=== PATIENT | male | born 1950 | race Caucasian/White ===

== ENCOUNTER 2017-01-04 03:03 | Inpatient (IN) | payer MEDICARE ==
[~2017-01-04] VITALS: Ht 182.9 cm; Wt 101.9 kg
[2017-01-04] VITALS (7 sets, daily range): BP systolic 119–143; BP diastolic 64–75; PULSE 67–102; RESP 18–24; O2SAT 92–96
--- NOTE | 2017-01-04 03:59 | ED.REPORT ---
HPI-General Illness Date of Service Jan 04, 2017 ED Provider: Ladarius Villa MD A 66 year old male with a history of Crohn's disease presents to the ED complaining of chills and shaking rigors that began at 1845 this evening. He reports that his symptoms began while eating dinner and persisted throughout the night. Patient was unable to sleep because of his symptoms. He recently had a screw puncture injury and a tetanus shot. He denies any fever, cough, sore throat, dysuria, nausea, abdominal pain or vomiting. Patient currently takes Cimzia. Nursing Notes Stated Complaint: COLD, SHAKY Chief Complaint: General Complaint Nursing Notes Reviewed: Yes Allergies: Coded Allergies: No Known Allergies (Unverified , 01/04/17) Scheduled ([tumeric]) 2 TAB PO DAILY Azathioprine (Azathioprine) 50 Mg Tablet 50 MG PO DAILY Certolizumab Pegol (Cimzia) 400 Mg/2 Ml Syringekit 400 MG SQ monthly Cholecalciferol (Vitamin D3) (Vitamin D3) 3,000 Unit Tablet 3,000 UNIT PO DAILY General Time Seen by MD: 03:25 Chief Complaint Other (Chills) Hx Obtained From: Patient Arrived By: Walk-in Sudden in Onset?: No Onset Occurred: Just prior to arrival Symptom Duration: Since onset Associated with: Reports: Cough, Denies: Fever, Nausea, Vomiting Pertinent Negative: Pt denies other symptoms Recent Healthcare: No recent doctor visit, No recent hospitalization Past Medical History Past Medical History Crohn's disease Past Surgical History Previous colon biopsy Smoking History Unknown if Ever Smoker Social History Other Social History: Good social support, , Local resident Ambulatory Status Independent Review of Systems Full Review of Systems Constitutional: Reports: Chills, Denies: Fever Respiratory: Denies: Non-productive cough GI: Denies: Abdominal pain, Nausea, Vomiting Complete sys rev & neg: except as marked. Physical Exam Vital Signs Vital Signs Date Time Temp Pulse Resp B/P Pulse Ox O2 Delivery O2 Flow Rate FiO2 01/04/17 04:45 37.9 01/04/17 03:05 36.2 102 24 133/75 92 Room Air Initial VS: Reviewed, Vital signs abnormal Neck: Supple, Non-tender, Full range of motion Extremities: Vascular intact, Neuro intact, No swelling, No tenderness Neurologic: Alert, Oriented, Nonfocal Psychiatric: Mood/affect normal, Behavior normal, Normal thought content General/Constitutional: Awake, Alert, No acute distress GENERAL: Overweight Head / Eyes: Atraumatic, Normocephalic, PERRL Respiratory / Chest: Atraumatic, Breath sounds NL, Breath sounds = bilat, No respiratory distress Cardiovascular: Heart rate NL, Regular rhythm, Heart sounds NL Abdomen: Atraumatic, Soft, Non-tender Skin: Atraumatic, Warm, Dry SKIN: Flushed cheeks Interpretation & Diagnostics Lab Results Interpretation Result Diagram: 01/04/17 0520 01/04/17 0520 Test 01/04/17 04:55 01/04/17 05:20 Urine Color Yellow (YELLOW) Urine Appearance Clear (CLEAR,HAZY) Urine pH 5.0 (5.0-8.0) Urine Specific [place] 1.025 (1.003-1.035) Urine Protein Negativemg/dL (NEG,TRACE) Urine Glucose (UA) Negativemg/dL (NEGATIVE) Urine Ketones Negativemg/dL (NEGATIVE) Urine Occult Blood Trace (NEGATIVE) Urine Nitrite Negative (NEGATIVE) Urine Bilirubin Negative (NEGATIVE) Urine Urobilinogen Normalmg/dL (NORMAL) Urine Leukocyte Esterase Negative (NEGATIVE) Urine RBC 0-2/hpf (0-2) Urine WBC 0-5/hpf (0-5) Urine Epithelial Cells Occasional/hpf (NONE-MOD) Urine Crystals None seen (NONE SEEN) Urine Bacteria Few/hpf (NONE-FEW) Urine Hyaline Casts None/lpf (NONE) Urine Granular Casts None seen (NONE SEEN) Urine Waxy Casts None seen (NONE SEEN) Urine Red Blood Cell Casts None seen (NONE SEEN) Urine White Blood Cell Casts None seen (NONE SEEN) Urine Mucus Present (None Seen) Urine Trichomonas None seen (NONE SEEN) Urine Yeast None (NONE SEEN) Urinalysis Comment None Urine Culture Reflexed Not indicated White Blood Count 12.4th/mm3 (3.8-10.1) Red Blood Count 4.71mil/mm3 (4.40-5.80) Hemoglobin 14.1g/dL (13.8-17.2) Hematocrit 41.8% (41.0-50.0) Mean Corpuscular Volume 88.7fL (81-100) Mean Corpuscular Hemoglobin 29.9pg (27.0-35.0) Mean Corpuscular Hemoglobin Concent 33.7% (32.0-37.0) Red Cell Distribution Width 14.0% (12.3-15.4) Platelet Count 255bil/L (150-400) Neutrophils (%) (Auto) 88.6% (40-74) Lymphocytes (%) (Auto) 4.0% (14-46) Monocytes (%) (Auto) 6.1% (4-12) Eosinophils (%) (Auto) 0.6% (0-5) Basophils (%) (Auto) 0.2% (0-3) Sodium Level 135mEq/L (134-144) Potassium Level 4.7mEq/L (3.5-5.2) Chloride Level 98mEq/L (97-108) Carbon Dioxide Level 21mmol/L (18-29) Blood Urea Nitrogen 19mg/dL (8-27) Creatinine 1.11mg/dL (0.76-1.27) Estimat Glomerular Filtration Rate 70mL/min (>59) Glucose Level 138mg/dL (60-99) Lactic Acid Level 2.1mmol/L (0.4-2.0) Calcium Level 9.8mg/dL (8.5-10.1) Magnesium Level 1.6mg/dL (1.6-2.6) Total Bilirubin 0.9mg/dL (0.0-1.2) Aspartate Amino Transf (AST/SGOT) 23U/L (0-50) Alanine Aminotransferase (ALT/SGPT) 5U/L (0-44) Alkaline Phosphatase 96U/L (25-160) Troponin T 0.010ug/L (0.0-0.011) Total Protein 7.0g/dL (6.4-8.4) Albumin 3.5g/dL (3.4-5.0) Lipase 27U/L (13-60) Lab Results Interpretation: Mildly elevated white blood count, mildly elevated lactic acidosis, mildly elevated nonfasting blood glucose. X-Ray Chest Interpretation Chest Xray Interpretation: IMPRESSION: Left lower lobe pneumonia Interpretation / Wet Read by: Wet read ED physician Re-Eval/Medical Decision Med Decision/Clinical Course 66-year-old male who had chills and then shaking rigors throughout the day today. He is on immunosuppressive therapy for his Crohn's disease. He has no abdominal pain or other symptoms suggesting where he might be infected. Urinalysis is negative. Chest x-ray shows loss of the subarachnoid and left diaphragm with some scarring versus infiltrate. Clinically he seems to have a pneumonia as the basis for his sepsis syndrome. He was cultured and started on antibiotics. Time of Eval: 05:53 Re-Evaluation/Progress Note: Pt is informed of his X-ray results and likely pneumonia. He is informed of the plan to admit. All of the pt's 's questions are addressed. 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 I, Dr. Villa personally performed the history, physical exam and medical decision-making; I reviewed and confirmed the accuracy of the information in the transcribed note. Signed by: Belgica Saleem, 01/04/17 0621. Ladarius Villa MD Jan 04, 2017 03:59 NILESH LAUREANO Jan 04, 2017 04:53
[2017-01-04] MEDS ORDERED: 0.9% Sodium Chloride 1,000 ML IV ONE (04:56)
[2017-01-04 05:21] LABS: APPEARANCE,URINE CLEAR (CLEAR,HAZY); COLOR,URINE YELLOW (YELLOW); OCCULT BLOOD,URINE TRACE (NEGATIVE); UROBILINOGEN,URINE NORMAL (NORMAL)
[2017-01-04 05:29] LABS: BASOPHILS % (AUTO) 0.2 % (0-3); EOSINOPHILS % (AUTO) 0.6 % (0-5); MONOCYTES % (AUTO) 6.1 % (4-12); Mean Corpuscular Hemoglobin 29.9 pg (27.0-35.0); Mean Corpuscular Volume 88.7 fL (81-100); NEUTROPHILS % (AUTO) 88.6 % (40-74); Platelet Count 255 bil/L (150-400)
[2017-01-04 05:50] LABS: TROPONIN T 0.01 ug/L (0.0-0.011)
[2017-01-04 06:01] LABS: Magnesium 1.6 mg/dL (1.6-2.6)
[2017-01-04] MEDS ORDERED: Azithromycin Inj 500 MG in Dextrose 5% w/Vial Mate 250 ML IV ONE (06:05)
[2017-01-04] MEDS ORDERED: cefTRIAXone Inj 2,000 MG in Dextrose 5% Minibag Plus 50 ML IV ONE (06:05)
[2017-01-04] MEDS ORDERED: Ondansetron 2 mg/mL 2 mL Inj IVPUSH PRN (07:20)
[2017-01-04] MEDS ORDERED: CHOL3000 PO (07:46)
[2017-01-04] MEDS ORDERED: CERT400S SQ (07:46)
[2017-01-04] MEDS ORDERED: AZTH50T PO (07:46)
[2017-01-04] MEDS ORDERED: tumeric PO (07:46)
--- NOTE | 2017-01-04 08:00 | NUR ---
Admit to [facility] Pt admitted to [facility] from the ED at 0745 hrs. Alert and oriented x 3. No complaints of pain. VSS. PIV patent and asymptomatic. Pt placed on telemetry. Personal clothing taken home by pt's spouse except for a pair of jeans, which were placed in the closet. Awaiting new orders.
--- NOTE | 2017-01-04 08:09 | NUR ---
Admit: Pt admitted to [facility] room 1014 at 0745, pt awake and alert. Health history and med rec obtained from verbal recall of patient. Report given to Bryanna Mojica RN, to assume care of patient.
--- NOTE | 2017-01-04 08:27 | DRSVH ---
PROCEDURE: X-RAY CHEST ONE VIEW, PORTABLE ([id number]) INDICATIONS: rigors TECHNIQUE: One view of the chest was acquired. COMPARISON: None. FINDINGS: Surgical changes and devices: None. Lungs and pleura: No pleural effusions or pneumothorax. Patchy opacity noted in the left lung base w hich represent atelectasis or pneumonia. Mediastinum: Mediastinal contours appear normal. Heart size is normal. Bones and chest wall: No suspicious bony lesions. Overlying soft tissues appear unremarkable. IMPRESSION: Left basilar atelectasis versus pneumonia. Please correlate with clinical and laboratory data. Dictated by: Svetlana Garcias MD, PhD on 01/04/2017 at 8:25 Approved by: Svetlana Garcias MD, PhD on 01/04/2017 at 8:26
[2017-01-04] MEDS ORDERED: CYAN100T PO (09:07)
[2017-01-04] MEDS ORDERED: CHOL500011 PO (09:07)
[2017-01-04] MEDS ORDERED: CALC600T12 PO (09:07)
[2017-01-04] MEDS ORDERED: MULT1CAP33 PO (09:08)
[2017-01-04] MEDS ORDERED: TACR100O2 TP (09:08)
--- NOTE | 2017-01-04 09:15 | NUR ---
PASTOR signed by pt
--- NOTE | 2017-01-04 11:28 | PCM.HPMED ---
Subjective Date of Service Jan 04, 2017 Primary Provider: Admitting Physician: Terry Mendieta MD Primary Care Physician: Other,Physician Attending Physician: Terry Mendieta MD Chief Complaint: rigors, chills History of Present Illness: 66yo M with Crohn's dz on immunosupressives, no other PMH p/w sudden onset of rigors and chills after dinner. patient tried warm bath, didn't help his sx. pt was recently went to [place], [place] helping out her son's [id number] house work painting. pt had trauma on scalp, minor superficial lac on 12/20, stapled. patient came back on 12/25, staple removed on 12/27 by local doctor, received tetanus vac. patient since then doing okay, didn't recall any sick contact in [place]. pt is having diarrhea at baseline, 7-8times watery at baseline, not different from baseline. Patient denied abdominal pain, n, v. patient has good appetite as well. pt having thick secretion, usually in the morning, but clears up in the morning. pt denied SOB, chest pain. ED VS SIRS+, BP 133/75, 102, 24, 37.9, 92% on RA. labs showed mild leukocytosis , mildly elevated lactate. CXR showed Lt base patch opacities, atelectasis vs PNA. pt received NS bolus 1-2liters, azithromycin, Rocephin. upon interview at [facility], pt looked not toxic, comfortable, denied any complaints. denied chills, tremors. cough, sputum, SOB Review of Systems: Pertinent positives as noted in history of present illness. All other systems were reviewed and are negative Allergies Coded Allergies: No Known Allergies (Unverified , 01/04/17) Home Medications Scheduled ([tumeric]) 2 TAB PO DAILY Azathioprine (Azathioprine) 50 Mg Tablet 50 MG PO DAILY Certolizumab Pegol (Cimzia) 400 Mg/2 Ml Syringekit 400 MG SQ monthly Cholecalciferol (Vitamin D3) (Vitamin D3) 3,000 Unit Tablet 3,000 UNIT PO DAILY PMH As described above in history of present illness Surgical History Left neck benign tumor removal 4 years ago benign colon mass removal, colectomy Left heel surgery 5times Bilateral inguinal hernia surgeries, mesh placed Family History Mother of breast cancer Father of stroke Social History Hx Alcohol Use: No Hx Substance Use: No Hx Tobacco Use: No Smoking Status: Unknown if Ever Smoker Additional Information lives home with Exam Vital Signs Vital Sign - Last Date Time Temp Pulse Resp B/P Pulse Ox O2 Delivery O2 Flow Rate FiO2 01/04/17 09:03 36.8 88 18 143/66 96 Room Air Intake and Output 01/03/17 01/03/17 01/04/17 Cumulative From/Thru 15:00 23:00 07:00 01/04/17 03:05 - 01/04/17 06:47 Intake Total 2000 ml 2000 ml Balance 2000 ml 2000 ml Intake IV Total 2000 ml 2000 ml Exam NAD, comfortably laying down on the bed no JVD, MMM, no LAD RRR, nl s1, s2 no mrg CTAB, no w,c S,ND,NT,normoactive BS+ warm, no edema, pulses 2/2 Lab and Diagnostics Result Diagram: 01/04/17 0520 01/04/17 0520 X-Rays, CTs and MRIs PROCEDURE: X-RAY CHEST ONE VIEW, PORTABLE ([id number]) INDICATIONS: rigors TECHNIQUE: One view of the chest was acquired. COMPARISON: None. FINDINGS: Surgical changes and devices: None. Lungs and pleura: No pleural effusions or pneumothorax. Patchy opacity noted in the left lung base which represent atelectasis or pneumonia. Mediastinum: Mediastinal contours appear normal. Heart size is normal. Bones and chest wall: No suspicious bony lesions. Overlying soft tissues appear unremarkable. IMPRESSION: Left basilar atelectasis versus pneumonia. Please correlate with clinical and laboratory data. Dictated by: Svetlana Garcias MD, PhD on 01/04/2017 at 8:25 Approved by: Svetlana Garcias MD, PhD on 01/04/2017 at 8:26 Assessment & Plan Acute, active sepsis, POA, SIRS+, likely bacterial although no clear source: probable CAP based on CXR,hx, infectious colitis. Given patient's immunosupressive state. 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
[2017-01-04] MEDS ORDERED: TACROLIMUS TP PRN (11:30)
--- NOTE | 2017-01-04 12:24 | NUR ---
Social Work: Initial Assessment/Readiness for Discharge D: EMR reviewed. Pt is a 66 y/o male admitted for left LL pneumonia, sepsis per H&P. GERMAN met with pt and pt's spouse/DPOA (Hailey March [phone]) at bedside to conduct initial assessment. Pt was alert and oriented x3. SW explained role and wrote phone number on white board. Pt's insurance is [facility] Medicare Complete HMO and PCP is located in [place]. Pt's primary contact his is spouse, (Hailey March [phone]), who can be contacted for discharge planning. SW provided DPOA/advanced directive ppw and encouraged pt to provide a copy to the hospital when completed. Pt and spouse stated that spouse is DPOA according to legal documents at home. SW encourage pt to provide any document pertaining to DPOA to the hospital. Pt has no Hx of HH or SNF. Pt has no LTC insurance or VA benefits. Pt is independent with ADLs. Pt does not use or own any DME. Pt drives. Pt is independent at baseline. Pt lives with his spouse in a multi-story home with 0 steps to enter and 13 steps to the second floor in [place]. Pt confirmed that his spouse will provide transport home via POV when pt is medically stable to discharge. SW does not anticipate any discharge needs at this time but will continue to follow EMR if needs arise. Per MD in AM multi-disciplinary rounds, pt is likely to discharge 6/5. A: Pt who is independent at baseline P: Pt confirmed that his spouse will provide transport home via POV when pt is medically stable to discharge. SW does not anticipate any discharge needs at this time but will continue to follow EMR if needs arise. CHRISTIANO Trotter Addendum: 01/04/17 at 1229 by MING NOGUEIRA Amended: Links added.
--- NOTE | 2017-01-04 18:40 | NUR ---
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 Administered 650 mg PO Tylenol. Temperature was 36.6 at 1750 hrs. Pt denies pain.
[2017-01-05 00:30] VITALS: BP 128/71; PULSE 66; RESP 16; O2SAT 96
--- NOTE | 2017-01-05 05:13 | NUR ---
No fever - no chills overnight. Denies pain, resting well. no acute changes.
[2017-01-05 05:37] LABS: BASOPHILS % (AUTO) 0.2 % (0-3); EOSINOPHILS % (AUTO) 2.5 % (0-5); MONOCYTES % (AUTO) 12.7 % (4-12); Mean Corpuscular Hemoglobin 29.5 pg (27.0-35.0); Mean Corpuscular Volume 87.6 fL (81-100); Platelet Count 191 bil/L (150-400)
[2017-01-05 05:50] VITALS: BP 118/75; PULSE 60; RESP 16; O2SAT 96
[2017-01-05 05:55] VITALS: PULSE 66
[2017-01-05 06:01] LABS: Magnesium 1.8 mg/dL (1.6-2.6); Phosphorus 3.1 mg/dL (2.5-4.9)
[2017-01-05] MEDS ORDERED: TUMERIC PO SCH (08:30)
[2017-01-05] MEDS ORDERED: Azithromycin Inj 500 MG in Dextrose 5% w/Vial Mate 250 ML IV SCH ×4 (08:30)
[2017-01-05 09:17] VITALS: BP 119/70; PULSE 65; RESP 18; O2SAT 96
[2017-01-05] MEDS: cefTRIAXone Inj 2,000 MG in Dextrose 5% Minibag Plus 50 ML IV SCH (09:27)
[2017-01-05] MEDS: Multivit-Miner-Folic Acid-Iron Tablet PO SCH (09:29)
[2017-01-05] MEDS: Calcium Carbonate (Oyster Shell) 500 mg Tablet PO SCH (09:29)
[2017-01-05 10:04] VITALS: PULSE 65
--- NOTE | 2017-01-05 11:14 | PCM.PNMED ---
Subjective Date of Service Jan 05, 2017 Subjective pt was started on Fluconazole, remained stable, still no complaints, stools were negative for infection PCT is trending up but wbc with poly normalized Fungitell, fungal culture sent Exam Vital Signs Vital Sign - Last Date Time Temp Pulse Resp B/P Pulse Ox O2 Delivery O2 Flow Rate FiO2 01/05/17 10:04 65 01/05/17 09:17 36.7 18 119/70 96 Room Air Intake and Output 01/04/17 01/04/17 01/05/17 Cumulative From/Thru 15:00 23:00 07:00 01/04/17 03:05 - 01/05/17 06:12 Intake Total 1400 ml 700 ml 4100 ml Output Total 1500 ml 1200 ml 2700 ml Balance -100 ml -500 ml 1400 ml Intake Oral 1400 ml 700 ml 2100 ml IV Total 2000 ml Output Urine Total 1500 ml 1200 ml 2700 ml # Voids 3 3 # Bowel Movements 1 1 Exam NAD, comfortably laying down on the bed no JVD, MMM, no LAD RRR, nl s1, s2 no mrg CTAB, no w,c S,ND,NT,normoactive BS+ warm, no edema, pulses 2/2 IVs and Medications Medications Reviewed: Medications were reviewed in detail Lab and Diagnostics Result Diagram: 01/05/17 0500 01/05/17 0500 X-Rays, CTs and MRIs PROCEDURE: X-RAY CHEST ONE VIEW, PORTABLE ([id number]) INDICATIONS: rigors TECHNIQUE: One view of the chest was acquired. COMPARISON: None. FINDINGS: Surgical changes and devices: None. Lungs and pleura: No pleural effusions or pneumothorax. Patchy opacity noted in the left lung base which represent atelectasis or pneumonia. Mediastinum: Mediastinal contours appear normal. Heart size is normal. Bones and chest wall: No suspicious bony lesions. Overlying soft tissues appear unremarkable. IMPRESSION: Left basilar atelectasis versus pneumonia. Please correlate with clinical and laboratory data. Dictated by: Svetlana Garcias MD, PhD on 01/04/2017 at 8:25 Approved by: Svetlana Garcias MD, PhD on 01/04/2017 at 8:26 Assessment & Plan Acute, active sepsis, POA, SIRS+, likely bacterial although no clear source: probable CAP based on CXR,hx, infectious colitis. Given patient's immunosupressive state. 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
[2017-01-05] MEDS: CYANOCOBALAMIN 3000 MCG SL SCH (15:32)
--- NOTE | 2017-01-05 16:15 | DRSVH ---
PROCEDURE: CT CHEST WITHOUT CONTRAST ([id number]) INDICATIONS: ? evolving LLL pneumonia TECHNIQUE: Noncontrast 5 mm thick sections acquired from the pulmonary apices to the posterior costophrenic angl es. 7 mm thick coronal and sagittal MIP reformats were then acquired. For radiation dose reduction, the following was used: automated exposure control, adjustment of mA and/or kV according to patient size. COMPARISON: [facility], CR, XR CHEST 1VW (PORTABLE), 01/04/2017, 4:57. FINDINGS: Image quality: Excellent. Lungs and pleura: No definite acute air space opacities, and there is a mild degree of linear strand ing in each lung base, slightly improved from the comparison study by chest plain film 01/04/17.. No p leural effusions or pneumothorax. Central and peripheral airways are patent and normal in caliber. Mediastinum: Heart size is normal. No pericardial effusion. No mediastinal adenopathy by size crit eria. Thoracic aorta and central pulmonary arteries are normal in size. Esophagus is normal in husam brianna. No hiatal hernia. Bones and chest wall: No suspicious bony lesions. No vertebral body compression fractures. No axil austen or supraclavicular adenopathy by size criteria. Thyroid gland is not well-visualized by this no ncontrast technique but appears normal where well seen.. Abdomen: Visualized upper abdominal solid organs and bowel loops appear normal in the absence of con trast. IMPRESSION: The linear stranding in each lung base, greater on the left than the right, appears to r epresent more likely atelectasis than evidence of early pneumonia in the mild improvement over time f rom one day ago. Dictated by: Boogie Moran M.D. on 01/05/2017 at 16:11 Approved by: Boogie Moran M.D. on 01/05/2017 at 16:13
--- NOTE | 2017-01-05 16:42 | CONS ---
[address] [address] CONSULTATION REPORT PATIENT: JOANA WALLACE : 1950 MR#: [id number] ADMIT: 01/04/2017 JOB ID: [id number] DATE OF SERVICE: 01/05/[address] Banerjee for this timely consult. REASON FOR CONSULTATION: Possible pneumonia in a patient who recently traveled to [place] and is immunosuppressed. HISTORY OF PRESENT ILLNESS: The patient is a 66-year-old gentleman who about six years ago was diagnosed with Crohn's. He is currently on dual regimen including Cimzia as well as Imuran. He is not taking prednisone. He was tolerating the therapy quite well and having four or five bowel movements a day until a recent trip to [place]. He traveled by car to [place], [place] with his and they were in [place] from December 10 until December 25 helping his son fix up a house. Following this time, they drove back to this area. They usually reside in [place], but they have a rental home in [facility] which is a historic family property they rent out to vacationers. In any event, the patient reported he was at a dinner constitution party on Friday night and, during that constitution party, he noticed he was incredibly cold while the other guests reported they felt fine. Subsequent to that, he went home and became so cold he developed rigors. He got in a hot bathtub to try and overcome the rigors, but was just continuously shaking and finally gave up and came to the emergency department where he was admitted. The patient reports that he felt as if there were some fevers associated with these rigors and these are the most dramatic rigors of his life. In association with the rigors, he had a bit of a headache but really no other focal symptoms. He did note that he has had some tenderness in his right 2nd molar which has been going on for several weeks and it is not a whole lot better or worse here recently. Otherwise, no stiff neck. No sore throat. No significant cough, shortness of breath or chest pain. He does note that with very deep inspiration, he may have a little bit of left mid chest pleuritic pain, but no nausea or vomiting. He does have constant diarrhea as part of his Crohn's, but it is not worse than normal. No dysuria and no hematuria. No skin rash has been noted. PAST MEDICAL HISTORY: 1. Crohn's disease. 2. Inguinal hernias. 3. Removal of benign colon mass by colectomy. 4. Removal of left neck benign tumor. 5. Left heel surgery. SOCIAL HISTORY: The patient is a nondrinker and nonsmoker. FAMILY HISTORY: Negative for tuberculosis. REVIEW OF SYSTEMS: Was done. The patient is currently feeling much improved. He notes that his bed shaking rigors started to improve right after he got to the emergency department, and he attributes it to the initiation of antibiotic therapy. At this point, he has little in the way of headache, no confusion, no change in vision. No sore throat. He has no cough, maybe . He has had a left pleuritic chest pain with deep inspiration. He is not short of breath. No nausea, vomiting, diarrhea is at baseline. No dysuria. No swelling of the joints and no difficulty with ambulation. The remainder of the review of systems was negative. PHYSICAL EXAMINATION: Reveals an afebrile, comfortable gentleman sitting on the side of the bed. Temperature is 36.6, and note that he has been afebrile now for a little more than 24 hours which is the whole time he has been here basically. He did have a 37.9 temperature right after he arrived in the ED. Pulse is 65, respiratory rate 18, blood pressure 119/70. Examination of the mental status reveals to be clear. Head without trauma. Eyes without conjunctivitis. Extraocular movements are normal. Nose normal. Oral cavity without thrush or hairy leukoplakia. I did push with my gloved hand very hard on the right 2nd upper molar, and there was minimal tenderness. The gums appear benign. Neck without adenopathy or tenderness. There are focal rales at the left base and these are not heard at the right base. The back is nontender, as mentioned, throughout. Abdomen soft and nontender. There is no hepatosplenomegaly, no ascites. No focal tenderness. No suprapubic tenderness. Examination of skin shows no rash and specifically no erythema nodosum. No peripheral edema. No evidence for synovitis. Neuro exam is entirely normal. Remainder of the physical normal. LABORATORIES: Include a white count of 12,000 when he was in the ED yesterday morning, now 6000 with basically normal diff. Creatinine 0.8. LFTs normal except for bilirubin 1.3. Albumin 3.3. Procalcitonin was measured twice 0.12 in the ED and 0.35 this morning. Urinalysis without white cells. Cocci antibody and fungitell are pending. Micro studies include negative blood cultures. Negative urine Legionella and pneumococcal antigens. Negative respiratory viral PCR. Negative MRSA PCR. IMAGING: Includes a chest x-ray, which according to the radiologist, shows left basilar atelectasis. This is very subtle. IMPRESSION: This is a difficult case. This gentleman is on a very powerful immunosuppressive regimen with a TNF inhibitor as well as Imuran and recently spent two weeks or so in the [facility]. This certainly raises the possibility of an acute coccidioidomycosis infection, though I think that this is somewhat unlikely as he has no sustained fevers, no eosinophilia and really an almost imperceptible infiltrate on this initial chest x-ray, at least. Given that he is, however, immunosuppressed with a TNF inhibitor, cocci must be borne in mind. I also worry about other forms of pneumonia including Legionella or staphylococcal pneumonia, but at this point, we have little to suggest those either. The patient has been started on a combination of azithromycin, ceftriaxone and fluconazole which I think is reasonable while we attempt to sort this out. In view of his overall low toxicity, however, and his desire to get back home to [place] soon, I hope that we can soon arrive at an oral antibiotic combination and get him out of the hospital. RECOMMENDATIONS: 1. I agree with the valley fever titers which have been drawn. 2. We are going to get a CT scan of the chest without contrast to better evaluate his left lower lung. 3. I will continue with these antibiotics with a possible transition to something oral, so that he could be discharged back home to [place] in the near future. I thank you very much for engaging me in this very interesting consult.
--- NOTE | 2017-01-05 18:48 | NUR ---
Afebrile Pt. has had no fever or chills on shift. Pt. is pleasant and cooperative with care c/o no CP or SOB. Pt. did state feeling some pressure/ache on his right cheek at beginning of shift, 1-2 out 10, and also stating this was going on for about 1 week and half. Will continue to monitor.
[2017-01-05 21:00] VITALS: BP 130/77; PULSE 66; RESP 16; O2SAT 96
--- NOTE | 2017-01-06 04:09 | NUR ---
activity pt has been afebrile and denies chills. he reports a mild discomfort in a tooth on the upper R. he says the pain is a 1-2/10 and denies need for pain medication. he has been up independently in room. denies any weakness or SOB. pleasant and cooperative with care.
[2017-01-06 05:00] VITALS: BP 129/78; PULSE 58; RESP 18; O2SAT 93
[2017-01-06 05:42] LABS: BASOPHILS % (AUTO) 0.3 % (0-3); EOSINOPHILS % (AUTO) 4.1 % (0-5); MONOCYTES % (AUTO) 12.3 % (4-12); Mean Corpuscular Volume 88.7 fL (81-100); NEUTROPHILS % (AUTO) 66.8 % (40-74); Platelet Count 199 bil/L (150-400)
[2017-01-06 06:09] LABS: Magnesium 1.9 mg/dL (1.6-2.6); Phosphorus 3.6 mg/dL (2.5-4.9)
[2017-01-06] MEDS: Multivit-Miner-Folic Acid-Iron Tablet PO SCH (08:22)
[2017-01-06] MEDS: Calcium Carbonate (Oyster Shell) 500 mg Tablet PO SCH (08:23)
[2017-01-06] MEDS: CYANOCOBALAMIN 3000 MCG SL SCH (08:24)
[2017-01-06 08:31] VITALS: BP 135/78; PULSE 57; RESP 20; O2SAT 94
--- NOTE | 2017-01-06 08:32 | PROG NOTE ---
[address] [address] PROGRESS NOTE PATIENT: JOANA WALLACE : 1950 MR#: [id number] ADMIT: 01/04/2017 JOB ID: [id number] DATE: 01/06/2017 REASON FOR FOLLOWUP: Fever and leukocytosis in an immunosuppressed host. INTERVAL HISTORY: Overnight, the patient has had no additional fevers, chills, sweats, or cough. He has no shortness of breath and, aside from his chronic diarrhea due to his Crohn's disease, he feels quite well. PHYSICAL EXAMINATION: Reveals an afebrile gentleman. Temperature 36.7, pulse 58, respiratory rate 18, blood pressure 129/78. He is saturating well on room air. In no acute distress. Examination of the mental status reveals it to be completely clear. Oral cavity negative. Lungs clear to auscultation posteriorly. Cardiac tones without change. No skin rash. No e. nodosum. LABORATORIES: Include white count 6400, normal diff. Creatinine 0.78. LFTs are normal. Procalcitonin was 0.1 in the ED, went to 0.3 on the , and is 0.2 today. Urinalysis without white cells. QuantiFERON Gold is pending. Cocci antibody and Fungitell pending. Urine Legionella and pneumococcal antigens are negative. Respiratory multiplex PCR negative. Chest CT scan I reviewed personally on the view finder shows linear stranding in the bases, left greater than right, which the radiologist and I agree likely represents atelectasis. They also note that it seems improved compared to the chest radiograph on the . IMPRESSION: This is a gentleman with underlying Crohn's disease who is on a TNF inhibitor as well as Imuran, and recently returned from [place]. He presents with chills basically that progressed to rigors which led him to come to the emergency department where he was evaluated with blood cultures and numerous other studies which have so far proved to be negative. Since his admission here, he has been afebrile for basically three days and all of his cultures and studies have proven to be negative except for a mild leukocytosis when he originally presented, 12,000 white cells, 88% segs, which resolved within 24 hours, and now he has mild monocytosis at 12%, otherwise completely normal diff. His chemistry studies are normal. His procalcitonin never reached more than 0.3, and we have cocci studies which are pending which I suspect will be negative. At this point, he is completely asymptomatic on room air, with a chest CT which shows little streaky atelectasis in the bases, and I think he could be discharged. As of this morning, he will have received three days of azithromycin and ceftriaxone, and I think that I would just send him out with about two more days of azithromycin 500 a day to complete a 5-day course or 2.5 g of azithromycin with the addition of the 3 g of ceftriaxone with the three days of ceftriaxone he has already received. RECOMMENDATIONS: 1. Okay to discharge today with azithromycin 500 once a day to be taken on January 07 and , and then stop. 2. The patient should follow up with his primary care doctor within the next week or so. 3. I have given the patient my cell number, and they can call me on Friday or so for results of the cocci antibodies and QuantiFERON Gold studies we have ordered, or any other questions they might have. Thank you very much. ID will go ahead and sign off.
[2017-01-06] MEDS: cefTRIAXone Inj 2,000 MG in Dextrose 5% Minibag Plus 50 ML IV SCH (08:55)
--- NOTE | 2017-01-06 09:31 | PCM.DIMED ---
Discharge Instructions Date of Service Jan 06, 2017 Dates of Hospitalization Jan 04, 2017 at 07:08 Discharge Diagnosis Discharge Diagnosis Possible Pneumonia Crohn's Disease Patient Instructions Patient Instructions Call and speak with Dr. Bragg this Friday as he recommended, he will give you the final results. Also plan in seeing your primary care provider next week in follow up. Mare Newman MD Jan 06, 2017 09:31
[2017-01-06] MEDS ORDERED: AZIT500T5 PO (10:09)
--- NOTE | 2017-01-06 10:16 | PCM.DC.MED ---
Discharge Summary Date of Service Jan 06, 2017 Dates of Hospitalization Date of Hospital Admission Jan 04, 2017 at 07:08 Date of Discharge: Jan 06, 2017 Providers: Admitting Physician: Terry Mendieta MD Primary Care Physician: Other,Physician Attending Physician: Terry Mendieta MD Diagnosis at Time of Discharge Diagnosis at Time of Discharge Possible Pneumonia Crohn's Disease Procedures XRay, CTs & MRIs PROCEDURE: X-RAY CHEST ONE VIEW, PORTABLE ([id number]) INDICATIONS: rigors TECHNIQUE: One view of the chest was acquired. COMPARISON: None. FINDINGS: Surgical changes and devices: None. Lungs and pleura: No pleural effusions or pneumothorax. Patchy opacity noted in the left lung base which represent atelectasis or pneumonia. Mediastinum: Mediastinal contours appear normal. Heart size is normal. Bones and chest wall: No suspicious bony lesions. Overlying soft tissues appear unremarkable. IMPRESSION: Left basilar atelectasis versus pneumonia. Please correlate with clinical and laboratory data. Dictated by: Svetlana Garcias MD, PhD on 01/04/2017 at 8:25 Approved by: Svetlana Garcisa MD, PhD on 01/04/2017 at 8:26 PROCEDURE: CT CHEST WITHOUT CONTRAST ([id number]) INDICATIONS: ? evolving LLL pneumonia TECHNIQUE: Noncontrast 5 mm thick sections acquired from the pulmonary apices to the posterior costophrenic angles. 7 mm thick coronal and sagittal MIP reformats were then acquired. For radiation dose reduction, the following was used: automated exposure control, adjustment of mA and/or kV according to patient size. COMPARISON: Merged With [facility], CR, XR CHEST 1VW (PORTABLE), 01/04/2017, 4: 57. FINDINGS: Image quality: Excellent. Lungs and pleura: No definite acute air space opacities, and there is a mild degree of linear stranding in each lung base, slightly improved from the comparison study by chest plain film 01/04/17.. No pleural effusions or pneumothorax. Central and peripheral airways are patent and normal in caliber. Mediastinum: Heart size is normal. No pericardial effusion. No mediastinal adenopathy by size criteria. Thoracic aorta and central pulmonary arteries are normal in size. Esophagus is normal in caliber. No hiatal hernia. Bones and chest wall: No suspicious bony lesions. No vertebral body compression fractures. No axillary or supraclavicular adenopathy by size criteria. Thyroid gland is not well-visualized by this noncontrast technique but appears normal where well seen.. Abdomen: Visualized upper abdominal solid organs and bowel loops appear normal in the absence of contrast. IMPRESSION: The linear stranding in each lung base, greater on the left than the right, appears to represent more likely atelectasis than evidence of early pneumonia in the mild improvement over time from one day ago. Dictated by: Boogie Moran M.D. on 01/05/2017 at 16:11 Brief History 66yo M with Crohn's dz on immunosupressives, no other PMH p/w sudden onset of rigors and chills after dinner. patient tried warm bath, didn't help his sx. pt was recently went to [place], [place] helping out her son's [id number] house work painting. pt had trauma on scalp, minor superficial lac on 12/20, stapled. patient came back on 12/25, staple removed on 12/27 by local doctor, received tetanus vac. patient since then doing okay, didn't recall any sick contact in [place]. pt is having diarrhea at baseline, 7-8times watery at baseline, not different from baseline. Patient denied abdominal pain, n, v. patient has good appetite as well. pt having thick secretion, usually in the morning, but clears up in the morning. pt denied SOB, chest pain. ED VS SIRS+, BP 133/75, 102, 24, 37.9, 92% on RA. labs showed mild leukocytosis , mildly elevated lactate. CXR showed Lt base patch opacities, atelectasis vs PNA. pt received NS bolus 1-2liters, azithromycin, Rocephin. upon interview at [facility] [place] [place], pt looked not toxic, comfortable, denied any complaints. denied chills, tremors. cough, sputum, SOB Hospital Course 1. sepsis, POA, -SIRS+, likely bacterial although no clear source: probable CAP based on CXR,hx , infectious colitis. Given patient's immunosupressive state. 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 infectious w/u so far ngtd: stool PCR, BCX -awaits serology for coccidiomycosis, -Patient to be discharged today, source of infection presumable pneumonia, Seen by ID, recommend 2 more days of oral azithromycin. Patient to call Dr. Bragg this friday to review final results; )gold interferon, cocci, fungitel results), other shahid follow up with pcp next week Chronic, stable Crohn's dz, held Imuran 100mg daily given acute infection, Cimzia is monthly -Continue with current medications dispo:pt is anxious to leave the hospital, probably appropriate for tomorrow, if clinically better, lab trend in right direction, consider consulting ID before d/c diet:general dvt ppx:LMWH Full code Exam Vital Signs (Last) Date Time Temp Pulse Resp B/P Pulse Ox O2 Delivery O2 Flow Rate FiO2 01/06/17 08:31 36.4 57 20 135/78 94 Room Air Test 01/04/17 04:55 01/04/17 05:20 01/04/17 15:00 01/04/17 15:36 Urine Color Yellow (YELLOW) Urine Appearance Clear (CLEAR,HAZY) Urine pH 5.0 (5.0-8.0) Urine Specific [place] 1.025 (1.003-1.035) Urine Protein Negativemg/dL (NEG,TRACE) Urine Glucose (UA) Negativemg/dL (NEGATIVE) Urine Ketones Negativemg/dL (NEGATIVE) Urine Occult Blood Trace (NEGATIVE) Urine Nitrite Negative (NEGATIVE) Urine Bilirubin Negative (NEGATIVE) Urine Urobilinogen Normalmg/dL (NORMAL) Urine Leukocyte Esterase Negative (NEGATIVE) Urine RBC 0-2/hpf (0-2) Urine WBC 0-5/hpf (0-5) Urine Epithelial Cells Occasional/hpf (NONE-MOD) Urine Crystals None seen (NONE SEEN) Urine Bacteria Few/hpf (NONE-FEW) Urine Hyaline Casts None/lpf (NONE) Urine Granular Casts None seen (NONE SEEN) Urine Waxy Casts None seen (NONE SEEN) Urine Red Blood Cell Casts None seen (NONE SEEN) Urine White Blood Cell Casts None seen (NONE SEEN) Urine Mucus Present (None Seen) Urine Trichomonas None seen (NONE SEEN) Urine Yeast None (NONE SEEN) Urinalysis Comment None Urine Culture Reflexed Not indicated Lactic Acid Level 2.1mmol/L (0.4-2.0) Troponin T 0.010ug/L (0.0-0.011) Lipase 27U/L (13-60) Urine Legionella pneumophilia Ag Negative (Negative) Test 01/05/17 08:20 01/06/17 05:15 White Blood Count 6.4th/mm3 (3.8-10.1) Red Blood Count 4.52mil/mm3 (4.40-5.80) Hemoglobin 13.1g/dL (13.8-17.2) Hematocrit 40.1% (41.0-50.0) Mean Corpuscular Volume 88.7fL (81-100) Mean Corpuscular Hemoglobin 29.0pg (27.0-35.0) Mean Corpuscular Hemoglobin Concent 32.7% (32.0-37.0) Red Cell Distribution Width 14.0% (12.3-15.4) Platelet Count 199bil/L (150-400) Neutrophils (%) (Auto) 66.8% (40-74) Lymphocytes (%) (Auto) 16.2% (14-46) Monocytes (%) (Auto) 12.3% (4-12) Eosinophils (%) (Auto) 4.1% (0-5) Basophils (%) (Auto) 0.3% (0-3) Sodium Level 141mEq/L (134-144) Potassium Level 4.0mEq/L (3.5-5.2) Chloride Level 105mEq/L (97-108) Carbon Dioxide Level 23mmol/L (18-29) Blood Urea Nitrogen 11mg/dL (8-27) Creatinine 0.78mg/dL (0.76-1.27) Estimat Glomerular Filtration Rate 106mL/min (>59) Glucose Level 133mg/dL (60-99) Calcium Level 10.0mg/dL (8.5-10.1) Phosphorus Level 3.6mg/dL (2.5-4.9) Magnesium Level 1.9mg/dL (1.6-2.6) Total Bilirubin 1.0mg/dL (0.0-1.2) Aspartate Amino Transf (AST/SGOT) 15U/L (0-50) Alanine Aminotransferase (ALT/SGPT) 15U/L (0-44) Alkaline Phosphatase 74U/L (25-160) Total Protein 6.0g/dL (6.4-8.4) Albumin 3.7g/dL (3.4-5.0) Procalcitonin 0.22ng/mL (0.00-0.08) Discharge Medications Discharge Medications ([tumeric]) 2 TAB PO DAILY (Reported) Azathioprine (Azathioprine) 50 Mg Tablet 100 MG PO DAILY (Reported) Azithromycin (Azithromycin) 500 Mg Tablet 500 MG PO DAILY Prescribed by: Mare NEWMAN MD Calcium Carbonate (Calcium) 600 Mg Tablet 600 MG PO DAILY (Reported) Certolizumab Pegol (Cimzia) 400 Mg/2 Ml Syringekit 200 MG SQ every 14 days ( Reported) Cholecalciferol (Vitamin D3) (Vitamin D3) 5,000 Unit Tablet 5,000 UNIT PO DAILY (Reported) Cyanocobalamin (Vitamin B-12) (Vitamin B-12) 100 Mcg Tablet 100 MCG PO DAILY ( Reported) Multivitamin (Multivitamins) 1 Each Capsule 1 EACH PO DAILY (Reported) As needed Tacrolimus (Protopic) 100 Gm Oint...g. 1 APPLIC TP DAILY PRN PRN rash (Reported ) Followup Plan Patient Instructions Call and speak with Dr. Bragg this Friday as he recommended, he will give you the final results. Also plan in seeing your primary care provider next week in follow up. Mare Newman MD Jan 06, 2017 10:16
--- NOTE | 2017-01-06 10:40 | NUR ---
Social Work: Discharge D: EMR reviewed. Pt is on day 2 of hospitalization. Pt confirmed that his spouse will provide transport home via POV today. SW does not anticipate any discharge needs at this time but will continue to follow EMR if needs arise. Per MD in AM multi-disciplinary rounds, pt will discharge home A: Pt who is independent at baseline P: Pt confirmed that his spouse will provide transport home via POV when pt is medically stable to discharge. SW does not anticipate any discharge needs at this time but will continue to follow EMR if needs arise. CHRISTIANO Trotter
--- NOTE | 2017-01-06 11:02 | NUR ---
DISCHARGE Patient denies pain. Tolerating liquids PO and his diet well. Denies nausea. No emesis noted. Denies SOB. Patient has been ambulating independently in the room and in the hallway. IV saline lock d/cd. Discharge instructions, care notes and prescription was given to the patient and he verbalized understanding. Discharged to home with his and all his personal belongings. (Copy of D/C is in the chart).
== END 2017-01-06 10:42 | disposition home or self-care (01) | DRG 194 ==
LOC: SED 03:03 → OSC 07:08
PROVIDERS: ADMIT Hospitalist; ATTEND Internal Medicine
DX: J18.9 Pneumonia, unspecified organism (principal); K50.90 Crohn's disease, unspecified, without complications